=== PATIENT | female | born 1970 | race Caucasian/White ===

== ENCOUNTER → 2021-02-24 | Day surgery (SDC) | payer MEDICARE ==
[~2021-02-24] VITALS: Ht 167.6 cm; Wt 93.9 kg
[~2021-02-24] MED LIST: AMBIEN10 MG PO; CALCIUM500 M1 PO; HYDROCODONE BIT10 MG PO; LEVOTHYROXINE100 MC2 PO; NEURONTIN800 MG PO; PERCOCET 7.5-31 EACH PO; PRILOSEC OTC20 MG PO; PROZAC20 MG PO; ROPINIROLE HCL1 MG PO; VITAMIN D21250 MCG PO
[2021-02-24 11:23] LABS: HEMOGLOBIN 11.4 gm/dl (12.3-15.3); RED BLOOD COUNT 3.92 M/UL (4.00-5.10); WHITE BLOOD COUNT 8.1 K/UL (4.5-11.0)
[2021-02-24 11:47] LABS: BUN/CREATININE RATIO 11 (0-10)
== END | disposition home or self-care (01) ==
LOC: OR 10:46
PROVIDERS: Orthopaedic Surgery
DX: S52.571A Other intraarticular fracture of lower end of right radius, initial encounter for closed fracture (principal); S63.091A Other subluxation of right wrist and hand, initial encounter; S61.501A Unspecified open wound of right wrist, initial encounter; J44.9 Chronic obstructive pulmonary disease, unspecified; W01.0XXA Fall on same level from slipping, tripping and stumbling without subsequent striking against object, initial encounter; Y92.9 Unspecified place or not applicable; Z90.710 Acquired absence of both cervix and uterus; Z88.6 Allergy status to analgesic agent; Z88.2 Allergy status to sulfonamides; Z20.822 Contact with and (suspected) exposure to COVID-19
CPT/HCPCS: 36415; 73110; 76000; 80048; 85027; 93005; C1713; J0690; J1100; J1170; J2001; J2250; J2405; J2704; J2795; J3010; J7120